=== PATIENT | male | born 1985 | race Caucasian/White ===

== ENCOUNTER 2018-12-30 20:57 | Emergency (ER) | payer OTHER ==
[2018-12-30 21:06] VITALS: BP 124/78; PULSE 81; RESP 16; TEMP 98
[2018-12-30] MEDS ORDERED: LIDOCAINE 1% INJ 10MG/ML (20 ML MDV) SQ ONE (21:08)
[2018-12-30] MEDS ORDERED: SODIUM CHLORIDE 0.9% IRRIG 1,000 ML BTL IRRIGATION ONE (21:55)
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
== END 2018-12-30 22:17 | disposition home or self-care (01) ==
LOC: EC 20:57
DX: S01.01XA Laceration without foreign body of scalp, initial encounter (principal); Y04.2XXA Assault by strike against or bumped into by another person, initial encounter; Y93.22 Activity, ice hockey; Y92.009 Unspecified place in unspecified non-institutional (private) residence as the place of occurrence of the external cause
CPT/HCPCS: 99282; 12001; J2001

== ENCOUNTER → 2020-03-24 | Outpatient (CLI) | payer OTHER | END | disposition home or self-care (01) | LOC: LABWHC1 14:18 | PROVIDERS: ATTEND Family Medicine | DX: Z20.828 Contact with and (suspected) exposure to other viral communicable diseases (principal) | CPT/HCPCS: U0003; C9803 ==

== ENCOUNTER 2021-06-18 23:59 | Emergency (ER) | payer OTHER ==
[2021-06-19 00:03] VITALS: BP 139/83; PULSE 74; RESP 19; TEMP 98
[2021-06-19] MEDS ORDERED: LIDOCAINE 1% INJ 10MG/ML (20 ML MDV) SQ STA (00:21)
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
--- NOTE | 2021-06-19 01:24 | CT ---
EXAMINATION TYPE: CT facial bones wo con DATE OF EXAM: 06/19/2021 COMPARISON: None HISTORY: trauma CT DLP: 532.4 mGycm Automated exposure control for dose reduction was used. Images obtained from the bottom of the mandible to the top of the frontal sinuses without contrast. The mandibular ring is intact. The temporomandibular joints appear intact. Zygomatic arches appear no rmal. Nasal bone appears intact. There is some mucosal thickening at the floor of the left maxillary sinus. There is no evidence of orbital blowout fracture. Orbital margins are intact. There is no retro-orbit al mass. The maxilla is intact. There is normal aeration of the mastoid sinuses. The temporal bones are intact. IMPRESSION: Negative CT scan of the facial bones. No fracture seen. Mucous retention cyst floor of the left maxillary sinus.
[2021-06-19] MEDS ORDERED: BACITRACIN OINT 1 EACH PACKET TOPICAL ONE (01:54)
== END 2021-06-19 02:01 | disposition home or self-care (01) ==
LOC: EC 23:59
DX: S01.81XA Laceration without foreign body of other part of head, initial encounter (principal); W21.220A Struck by ice hockey puck, initial encounter
CPT/HCPCS: 70486; 12013; 99283; J2001

== ENCOUNTER 2023-07-22 23:20 | Emergency (ER) | payer BC ==
[2023-07-22 23:43] VITALS: TEMP 98
[2023-07-23] MEDS: KETOROLAC 15 MG/ML 1 ML VIAL IM STA (01:23)
--- NOTE | 2023-07-23 01:26 | XR ---
EXAM: XR Right Ankle Complete, 3 or More Views CLINICAL HISTORY: ITS.REASON XR Reason: r/o fx TECHNIQUE: Frontal, lateral and oblique views of the right ankle. COMPARISON: No relevant prior studies available. FINDINGS: Bones/joints: Nondisplaced fracture of the distal fibula (Fletcher B). No dislocation. Soft tissues: Unremarkable. IMPRESSION: Nondisplaced fracture of the distal fibula (Fletcher B).
--- NOTE | 2023-07-23 03:43 | ED ---
General Adult HPI - General Chief complaint: Extremity Injury, Lower Stated complaint: ankle injury Time Seen by Provider: 07/22/23 23:42 Source: patient Mode of arrival: ambulatory Limitations: no limitations - History of Present Illness Initial comments: 37-year-old male presented to the ED with chief complaint of right ankle injury. Patient plays hockey for the problems. During the game patient states he inverted his right ankle and now notes pain of the right ankle. No other injuries at this time. No other complaints. - Related Data Previous Rx's Medication Instructions Recorded HYDROcodone/APAP 5-325MG [[place] 5] 1 each PO Q6HR PRN #12 tab 07/23/23 Allergies Allergy/AdvReac Type Severity Reaction Status Date / Time No Known Allergies Allergy Verified 12/30/18 21:06 Review of Systems ROS Statement: Those systems with pertinent positive or pertinent negative responses have been documented in the HPI. ROS Other: All systems not noted in ROS Statement are negative. Past Medical History Past Medical History: No Reported History History of Any Multi-Drug Resistant Organisms: None Reported Past Surgical History: Orthopedic Surgery Additional Past Surgical History / Comment(s): knee surgery right Past Psychological History: No Psychological Hx Reported Smoking Status: Never smoker Past Alcohol Use History: Occasional Past Drug Use History: None Reported General Exam Limitations: no limitations General appearance: alert, in no apparent distress Eye exam: Present: normal appearance Neck exam: Present: normal inspection Respiratory exam: Present: normal lung sounds bilaterally Cardiovascular Exam: Present: regular rate, normal rhythm GI/Abdominal exam: Present: soft Extremities exam: Present: other (Tenderness to palpation at the right lateral m alleolus. No tenderness to palpation of the medial malleolus, base of the f fifth metatarsal, or navicular. Full strength and sensation. DP/PT pulses intact.) Neurological exam: Present: alert, oriented X3 Psychiatric exam: Present: normal affect, normal mood Skin exam: Present: warm, dry Course Vital Signs 07/22/23 23:21 Temperature 98 F Pulse Rate 74 Respiratory 16 Rate Blood Pressure 137/76 O2 Sat by Pulse 98 Oximetry Procedures - Orthopedic Splinting/Casting Injury #1 Side: right Lower Extremity Immobilizer: posterior splint, stirrup splint Additional Comments: Neurovascularly intact after splint placement. Medical Decision Making - Medical Decision Making Was pt. sent in by a medical professional or institution (Dr., PA, MOTO MIX OPERATOR, urgent care, hospital, or assisted...) When possible be specific @ -No Did you speak to anyone other than the patient for history (EMS, parent, family, police, friend...)? What history was obtained from this source @ -No Did you review nursing and triage notes (agree or disagree)? Why? @ -I reviewed and agree with nursing and triage notes Were old charts reviewed (outside hosp., previous admission, EMS record, old EKG, old radiological studies, urgent care reports/EKG's, assisted records)? Report findings @ -No old charts were reviewed Differential Diagnosis (chest pain, altered mental status, abdominal pain women, abdominal pain men, vaginal bleeding, weakness, fever, dyspnea, syncope, headache, dizziness, GI bleed, back pain, seizure, CVA, palpatations, mental health, musculoskeletal)? @ -Differential Musculoskeletal Muscular strain, contusion, ligament sprain, fracture, arthritis, septic arthritis, bursitis, cellulitis, muscle spasm, nerve compression, DVT, arterial occlusion, herpes zoster, electrolyte abnormality, tumor.... This is not meant to be in all inclusive list EKG interpreted by me (3pts min.). @ -As above X-rays interpreted by me (1pt min.). @ -X-ray of the right ankle interpreted me showing distal right fibular fracture (Fletcher type B). CT interpreted by me (1pt min.). @ -None done U/S interpreted by me (1pt. min.). @ -None done What testing was considered but not performed or refused? (CT, X-rays, U/S, labs)? Why? @ -None What meds were considered but not given or refused? Why? @ -None Did you discuss the management of the patient with other professionals (professionals i.e. SARAH Lopez, MOTO MIX OPERATOR, lab, RT, psych nurse, social media campaign manager, senior clinical sas programmer, teacher, patient safety officer, pillowcase cleaner)? Give summary @ -No Was smoking cessation discussed for >3mins.? @ -No Was critical care preformed (if so, how long)? @ -No Were there social determinants of health that impacted care today? How? (Homelessness, low income, unemployed, alcoholism, drug addiction, transportation, low edu. Level, literacy, decrease access to med. care, [facility], rehab)? @ -No Was there de-escalation of care discussed even if they declined (Discuss DNR or withdrawal of care, Hospice)? DNR status @ -No What co-morbidities impacted this encounter? (DM, HTN, Smoking, COPD, CAD, Cancer, CVA, ARF, Chemo, Hep., AIDS, mental health diagnosis, sleep apnea, morbid obesity)? @ -None Was patient admitted / discharged? Hospital course, mention meds given and ro kadi, prescriptions, significant lab abnormalities, going to OR and other pertinent info. @ -Discharge 37-year-old male presenting to the ED with a chief complaint of right ankle injury after inverting his ankle while playing hockey. No other injuries at this time. X-ray of the right ankle did show distal fibular fracture (Fletcher type B). Patient was placed in a posterior splint with stirrup splint as well. Discharged home with referral to see orthopedics. Provided prescription for [place]. Patient already has crutches provided by his team. Discussed return precautions with patient who verbalized agreement. Undiagnosed new problem with uncertain prognosis? @ -No Drug Therapy requiring intensive monitoring for toxicity (Heparin, Nitro, Insulin, Cardizem)? @ -No Were any procedures done? @ -No Diagnosis/symptom? @ -Right distal fibular fracture Acute, or Chronic, or Acute on Chronic? @ -Acute Uncomplicated (without systemic symptoms) or Complicated (systemic symptoms)? @ -Uncomplicated Side effects of treatment? @ -No Exacerbation, Progression, or Severe Exacerbation? @ -No Poses a threat to life or bodily function? How? (Chest pain, [place], [place], pneumonia, PE, COPD, DKA, ARF, appy, cholecystitis, CVA, Diverticulitis, Homicidal, Suicidal, threat to staff... and all critical care pts) @ -No Disposition Clinical Impression: Right fibular fracture Disposition: HOME SELF-CARE Condition: Good Instructions (If sedation given, give patient instructions): Ankle Fracture (ED) Additional Instructions: Please return to the Emergency Department if symptoms worsen or any other concerns. Please follow-up with orthopedics. Continue nonweightbearing until further recommendations by orthopedics. Prescriptions: HYDROcodone/APAP 5-325MG [[place] 5] 1 each PO Q6HR PRN #12 tab PRN Reason: Pain Is patient prescribed a controlled substance at d/c from ED?: No Referrals: Dimitry Infante MD [Primary Care Provider] - 1-2 days Stas Robertson DO [Doctor of Osteopathic Medicine] - 1-2 days Time of Disposition: 03:00 (\)
[2023-07-23 04:01] VITALS: BP 128/88; PULSE 78; RESP 18
== END 2023-07-23 03:55 | disposition home or self-care (01) ==
LOC: EC 23:20
DX: S82.831A Other fracture of upper and lower end of right fibula, initial encounter for closed fracture (principal); X50.1XXA Overexertion from prolonged static or awkward postures, initial encounter; Y93.22 Activity, ice hockey
CPT/HCPCS: 73610; 29515; 99283; 96372; J1885